=== PATIENT | male | born 1950 | race Caucasian/White ===

== ENCOUNTER 2021-11-16 10:57 | Emergency (ER) | payer MEDICARE | END 2021-11-16 12:17 | disposition home or self-care (01) | LOC: NAV ERS 10:57 | DX: S13.9XXA Sprain of joints and ligaments of unspecified parts of neck, initial encounter (principal); S50.11XA Contusion of right forearm, initial encounter; I10 Essential (primary) hypertension; E78.2 Mixed hyperlipidemia; E11.9 Type 2 diabetes mellitus without complications; J44.9 Chronic obstructive pulmonary disease, unspecified; Z79.4 Long term (current) use of insulin; Z79.899 Other long term (current) drug therapy; W19.XXXA Unspecified fall, initial encounter ==